=== PATIENT | female | born 1945 | race Caucasian/White ===

== ENCOUNTER → 2018-03-19 | Outpatient (CLI) | payer MEDICARE, OTHER ==
[~2018-03-19] MED LIST: ASPI325 PO; ATEN50 PO; Adult Low Dose81 MG PO; Aspir-Trin325 MG PO; CALCAVITD PO; CO Q10100 MG PO; GARLIQUE5000 MCG PO; HYDR1TAB94 PO; LOSHYD100 PO; MAGCIT300 PO; MAGNESIUM CITR100 MG PO; MOME.1TC TOP; MULTI VITAMIN1 EACH PO; Mobic15 MG PO; OMEG1CAP30 PO; OXYACE5T PO; Premarin0.3 MG PO; Synthroid125 MCG PO; TOCO400 PO
== END | disposition home or self-care (01) ==
LOC: PLD 11:35 → LAB SHORT 11:35
DX: D48.5 Neoplasm of uncertain behavior of skin (principal)
CPT/HCPCS: 88305; 88312

== ENCOUNTER → 2018-04-30 | Outpatient (CLI) | payer MEDICARE, OTHER | END | disposition home or self-care (01) | LOC: LAB 16:54 → LAB SHORT 16:54 | DX: A49.9 Bacterial infection, unspecified (principal) | CPT/HCPCS: 88305 ==

== ENCOUNTER 2020-07-13 08:12 | Day surgery (SDC) | payer MEDICARE ==
[~2020-07-13] VITALS: Ht 172.7 cm; Wt 84.3 kg
[~2020-07-13 08:12] MED LIST changes: +ASPI81CH PO; +LOSA25 PO; +VITAMIN D-32000 UNIT
== END 2020-07-13 10:23 | disposition home or self-care (01) ==
LOC: ORSCSDS 08:12
PROVIDERS: Surgery
PROC: 0DJD8ZZ Inspection of Lower Intestinal Tract, Via Natural or Artificial Opening Endoscopic (ICD-10-PCS; principal; 2020-07-13 09:30)
DX: Z12.11 Encounter for screening for malignant neoplasm of colon (principal); Z86.010 Personal history of colon polyps; I10 Essential (primary) hypertension; E03.9 Hypothyroidism, unspecified; E78.5 Hyperlipidemia, unspecified; G47.30 Sleep apnea, unspecified; Z79.82 Long term (current) use of aspirin; Z79.899 Other long term (current) drug therapy
CPT/HCPCS: J2704; J7120

== ENCOUNTER 2021-07-24 09:24 | Emergency (ER) | payer MEDICARE ==
[~2021-07-24] VITALS: Ht 172.7 cm; Wt 86.2 kg
[2021-07-24 10:16] LABS: BASOPHILS ABSOLUTE AUTO 0.03 K/mm3 (0.00-0.23); BASOPHILS PERCENT AUTO 1 % (0-2); EOSINOPHILS ABSOLUTE AUTO 0.06 K/mm3 (0.00-0.68); EOSINOPHILS PERCENT AUTO 1 % (0-6); Hematocrit 39.1 % (33.0-51.0); Hemoglobin 13.4 g/dL (11.5-16.0); IMMATURE GRAN ABSOLUTE AUTO 0.02 K/mm3 (0.00-0.10); IMMATURE GRAN PERCENT AUTO 0 % (0-1); LYMPHOCYTES ABSOLUTE AUTO 1.09 K/mm3 (0.84-5.20); LYMPHOCYTES PERCENT AUTO 17 % (21-46); MONOCYTES ABSOLUTE AUTO 0.43 K/mm3 (0.16-1.47); MONOCYTES PERCENT AUTO 7 % (4-13); Mean Corpuscular HGB 31.8 pg (26.0-34.0); Mean Corpuscular HGB Conc 34.3 g/dL (31.5-36.5); Mean Corpuscular Volume 93 fL (80-100); Mean Platelet Volume 9.7 fL (9.1-12.4); NEUTROPHILS ABSOLUTE AUTO 4.64 K/mm3 (1.96-9.15); NEUTROPHILS PERCENT AUTO 74 % (41-73); Platelet Count 202 K/mm3 (150-400); RDW Coefficient Variation 11.7 % (11.7-14.2); RDW Standard Deviation 39.5 fL (35.1-46.3); Red Blood Cell Count 4.22 M/mm3 (3.80-5.20); White Blood Cell Count 6.27 K/mm3 (4.00-11.30)
== END 2021-07-24 11:12 | disposition home or self-care (01) ==
LOC: ER 09:24
PROVIDERS: Emergency Medicine
DX: R04.0 Epistaxis (principal); I10 Essential (primary) hypertension; Z88.8 Allergy status to other drugs, medicaments and biological substances; Z88.6 Allergy status to analgesic agent; Z79.899 Other long term (current) drug therapy; Z79.82 Long term (current) use of aspirin
CPT/HCPCS: 30905; 36415; 85025; 99283-25

== ENCOUNTER 2023-01-31 19:28 | Emergency (ER) | payer OTHER ==
[~2023-01-31] VITALS: Ht 172.7 cm; Wt 86.2 kg
[2023-01-31 19:31] VITALS: BP 164/81
== END 2023-01-31 21:47 | disposition home or self-care (01) ==
LOC: ER 19:28
DX: R04.0 Epistaxis (principal); Z88.8 Allergy status to other drugs, medicaments and biological substances; Z88.6 Allergy status to analgesic agent; Z79.899 Other long term (current) drug therapy; Z79.82 Long term (current) use of aspirin; I10 Essential (primary) hypertension
CPT/HCPCS: 99283